=== PATIENT | male | born 1965 | race Caucasian/White ===

== ENCOUNTER 2018-10-27 21:21 | Emergency (ER) | payer OTHER ==
[2018-10-27] MEDS ORDERED: NS 1,000 ML IV ONE (21:43)
[2018-10-27] MEDS ORDERED: ONDANSETRON 4 MG/2 ML VIAL IVP ONE (21:43)
[2018-10-27] MEDS ORDERED: MECLIZINE HCL 25 MG TAB PO ONE (21:55)
[2018-10-27] MEDS ORDERED: DIAZEPAM 5 MG/ML 1 ML SYR IVP ONE (21:55)
[2018-10-27] MEDS ORDERED: KETOROLAC 15 MG/1 ML SDV IVP ONE (22:58)
[2018-10-28 00:12] LABS: PLATELET COUNT 268 10^3/uL (150-400)
--- NOTE | 2018-10-28 00:57 | EDPHY ---
H & P Stated Complaint: N/V, DIZZY Time Seen by Provider: 10/27/18 21:46 HPI/ROS: Chief complaint: Dizziness History of present illness: This is a 52-year-old male who presents to the emergency department for evaluation of dizziness. Patient reports the sudden onset of symptoms earlier today. He describes a sensation of being off balance and things moving around him. He has had associated nausea and vomiting. Symptoms are worse with moving, better when he lays still. He does report earlier this week he had minor cold symptoms that have resolved. He denies other associated signs or symptoms including no sensation of feeling like he is going to pass out, no paresthesias or weakness or paralysis, no double vision, no headache. Review of systems: A 10 point review of systems was obtained and other than described above was negative. - Personal History Current Tetanus Diphtheria and Acellular Pertussis (TDAP): Unsure - Medical/Surgical History Hx Asthma: Yes Hx Chronic Respiratory Disease: No Hx Diabetes: No Hx Cardiac Disease: No Hx Renal Disease: No Hx Cirrhosis: No Hx Alcoholism: No Hx HIV/AIDS: No Hx Splenectomy or Spleen Trauma: No Other PMH: HTN, CILIAC, ORTHO SX, MJ USE, ASTHMA - Social History Smoking Status: Never smoked - Physical Exam Exam: General Appearance: Alert, no distress. Eyes: Pupils equal and round no pallor or injection. There is horizontal nystagmus, no vertical or rotary nystagmus appreciated. ENT, Mouth: Mucous membranes moist. Respiratory: There are no retractions, lungs are clear to auscultation. Cardiovascular: Regular rate and rhythm. No carotid bruits noted. Gastrointestinal: Abdomen is soft and non tender, no masses, bowel sounds normal. Neurological: Alert and oriented x4. Cranial nerves 2-12 grossly intact. Strength and sensation is intact and symmetrical. There is no pronator drift. Cerebellar testing is intact using finger to nose and heel to myles. He is able to ambulate on his own. Skin: Warm and dry, no rashes. Musculoskeletal: Neck is supple non tender. Extremities are symmetrical, full range of motion. Psychiatric: Patient is oriented X 3, there is no agitation. Constitutional: Initial Vital Signs Temperature (C) 36.7 C 10/27/18 21:25 Heart Rate 91 10/27/18 21:25 Respiratory Rate 16 10/27/18 21:25 Blood Pressure 139/98 H 10/27/18 21:25 O2 Sat (%) 99 10/27/18 21:25 O2 Delivery Mode Room Air Allergies/Adverse Reactions: "ciliac" Allergy (Uncoded 10/27/18 21:24) Home Medications: Medication Instructions Recorded Amlodipine Besylate 10/27/18 Diazepam [Valium 2 MG (*)] 2 mg PO TID #15 tab 10/28/18 Meclizine HCl 25 mg PO TID #10 tablet 10/28/18 Medical Decision Making ED Course/Re-evaluation: Patient seen in conjunction with my secondary supervising physician Dr. Angel Santana. Patient presents to the emergency department with vertigo-like symptoms. Patient was recently sick which suggest possibly a labyrinthitis. He does have a nonfocal neurologic exam including intact cerebellar testing. He is treated with IV hydration, meclizine orally and IV Valium. He did develop a slight headache while in the emergency department and was given Toradol with resolution of symptoms. He is able to ambulate on his own. He is tolerating oral challenges. He is comfortable being discharged home. He will be discharged on meclizine and Valium for breakthrough symptoms. He is asked to follow up with his Ears Nose and Throat doctor in the next 1-2 days for recheck. Strict return precautions were given. The patient voiced understanding and agreement with plan. Differential Diagnosis: Included but not limited to peripheral causes of vertigo such as labyrinthitis or BPPV, central causes of vertigo including tumor or stroke, electrolyte disturbances, cardiac disturbances - Data Points Laboratory Results: Laboratory Results 10/27/18 21:57 10/27/18 21:57 10/27/18 10/27/18 21:57 21:57 WBC 12.70 10^3/uL H 10^3/uL (3.80-9.50) RBC 5.97 10^6/uL 10^6/uL (4.40-6.38) Hgb 18.7 g/dL H g/dL (13.7-17.5) Hct 48.6 % % (40.0-51.0) MCV 81.4 fL L fL (81.5-99.8) MCH 31.3 pg pg (27.9-34.1) MCHC 38.5 g/dL H g/dL (32.4-36.7) RDW 12.4 % % (11.5-15.2) Plt Count 268 10^3/uL 10^3/uL (150-400) MPV 11.7 fL fL (8.7-11.7) Neut % (Auto) 88.4 % H % (39.3-74.2) Lymph % (Auto) 7.2 % L % (15.0-45.0) Garrard % (Auto) 3.5 % L % (4.5-13.0) Eos % (Auto) 0.2 % L % (0.6-7.6) Baso % (Auto) 0.2 % L % (0.3-1.7) Nucleat RBC Rel Count 0.0 % % (0.0-0.2) Absolute Neuts (auto) 11.22 10^3/uL H 10^3/uL (1.70-6.50) Absolute Lymphs (auto) 0.92 10^3/uL L 10^3/uL (1.00-3.00) Absolute Monos (auto) 0.45 10^3/uL 10^3/uL (0.30-0.80) Absolute Eos (auto) 0.02 10^3/uL L 10^3/uL (0.03-0.40) Absolute Basos (auto) 0.03 10^3/uL 10^3/uL (0.02-0.10) Absolute Nucleated RBC 0.00 10^3/uL 10^3/uL (0-0.01) Immature Gran % 0.5 % % (0.0-1.1) Immature Gran # 0.06 10^3/uL 10^3/uL (0.00-0.10) RBC/WBC/PLT Morphology NORMAL (NORMAL) Platelet Estimate ADEQUATE (ADEQ) Sodium 140 mEq/L mEq/L (135-145) Potassium 3.7 mEq/L mEq/L (3.5-5.2) Chloride 107 mEq/L mEq/L (97-110) Carbon Dioxide 23 mEq/l mEq/l (22-31) Anion Gap 10 mEq/L mEq/L (6-14) BUN 19 mg/dL mg/dL (7-23) Creatinine 1.1 mg/dL mg/dL (0.7-1.3) Estimated GFR > 60 Glucose 112 mg/dL H mg/dL (70-100) Calcium 10.1 mg/dL mg/dL (8.5-10.4) Medications Given: Discontinued Medications Diazepam (Valium) 5 mg IVP EDNOW ONE Stop: 10/27/18 21:56 Last Admin: 10/27/18 22:01 Dose: 5 mg Sodium Chloride (Ns) 1,000 mls @ 0 mls/hr IV ONCE ONE; Wide Open PRN Reason: Protocol Stop: 10/27/18 21:44 Last Admin: 10/27/18 21:47 Dose: 1,000 mls Ketorolac Tromethamine (Toradol) 15 mg IVP EDNOW ONE Stop: 10/27/18 22:59 Last Admin: 10/27/18 23:04 Dose: 15 mg Meclizine HCl (Meclizine Hcl) 25 mg PO EDNOW ONE Stop: 10/27/18 21:56 Last Admin: 10/27/18 22:02 Dose: 25 mg Meclizine HCl (Meclizine Hcl) 25 mg PO EDNOW ONE Stop: 10/28/18 01:02 Last Admin: 10/28/18 01:07 Dose: 25 mg Ondansetron HCl (Zofran) 4 mg IVP EDNOW ONE Stop: 10/27/18 21:44 Last Admin: 10/27/18 21:56 Dose: 4 mg Departure - Departure Disposition: Home, Routine, Self-Care Clinical Impression: Vertigo Condition: Good Instructions: Vertigo (ED) Additional Instructions: Follow-up with your primary care doctor or ENT doctor tomorrow for recheck Take meclizine as prescribed until symptoms resolve If meclizine does not control your symptoms you can take Valium If symptoms worsen or new symptoms develop return to the emergency room for recheck Referrals: Gallito Zepeda MD [Primary Care Provider] - As per Instructions Chaz Danielson MD [Medical Doctor] - As per Instructions Prescriptions: Diazepam [Valium 2 MG (*)] 2 mg PO TID #15 tab Meclizine HCl 25 mg PO TID #10 tablet
[2018-10-28] MEDS ORDERED: MECLIZINE HCL 25 MG TAB PO ONE (01:01)
[2018-10-28 01:07] VITALS: BP 136/100
== END 2018-10-28 01:12 | disposition home or self-care (01) ==
DX: R42 Dizziness and giddiness (principal); I10 Essential (primary) hypertension; E86.9 Volume depletion, unspecified
CPT/HCPCS: 96374; J1885; J2405; J3360